=== PATIENT | male | born 1950 | race Asian ===

== ENCOUNTER 2017-05-14 08:51 | Day surgery (SDC) | payer OTHER ==
[2017-05-13 14:16] VITALS: Ht 160 cm; Wt 73.0 kg
[~2017-05-14] VITALS: Ht 160 cm; Wt 73.0 kg
[2017-05-14] VITALS (9 sets, daily range): BP systolic 99–146; BP diastolic 67–85; PULSE 61–75; RESP 12–23
[~2017-05-14 08:51] MED LIST: AMLO-251 PO; LOSA100T7 PO
[2017-05-14] MEDS ORDERED: SOD CHLORIDE 0.9% 1,000 ML IV SCH (09:00)
[2017-05-14] MEDS ORDERED: AMLO5TAB4 PO (09:42)
[2017-05-14 09:54] LABS: BASOPHIL # 0.1 10^3/ul (0.0-0.1); BASOPHILS % 1.2 % (0.0-2.0); EOSINOPHILS # 0.2 10^3/ul (0.0-0.5); EOSINOPHILS % 4.4 % (0.0-7.0); HEMATOCRIT 43.6 % (42.0-52.0); HEMOGLOBIN 14.5 g/dl (14.0-18.0); LYMPHOCYTES # 1.3 10^3/ul (0.8-2.9); LYMPHOCYTES % 30.6 % (15.0-51.0); MEAN CORPUSCULAR HEMOGLOBIN 30.2 pg (29.0-33.0); MEAN CORPUSCULAR HGB CONC 33.3 g/dl (32.0-37.0); MEAN CORPUSCULAR VOLUME 90.8 fl (82.0-101.0); MEAN PLATELET VOLUME 8.9 fl (7.4-10.4); MONOCYTE # 0.3 10^3/ul (0.3-0.9); MONOCYTES % 8.1 % (0.0-11.0); NEUTROPHILS % 55.2 % (39.0-77.0); PLATELET COUNT 185 10^3/UL (140-415); RED CELL DISTRIBUTION WIDTH 13.3 % (11.5-14.5)
[2017-05-14 09:56] LABS: HOLD TRANSMISSIONS 1
[2017-05-14 09:59] LABS: WHITE BLOOD COUNT 4.1 10^3/ul (4.8-10.8)
[2017-05-14] MEDS ORDERED: FENTAnyl 50 MCG/ML VIAL ONE (10:03)
[2017-05-14] MEDS ORDERED: LIDOCAINE 2% (SDV) 5 ML INJ ONE (10:03)
[2017-05-14] MEDS ORDERED: PROPOFOL 20 ML ONE (10:03)
[2017-05-14] MEDS ORDERED: MIDAZOLAM 1 MG/ML 2 ML INJ ONE (10:03)
[2017-05-14 10:10] LABS: INR 0.91; PROTIME 12.3 Sec (12.2-14.2)
[2017-05-14 10:11] LABS: PARTIAL THROMBOPLASTIN TIME 27.3 Sec (25.0-35.0)
[2017-05-14 10:15] LABS: ALBUMIN 4.8 g/dl (3.3-4.9); ALBUMIN/GLOBULIN RATIO 1.37; BILIRUBIN,INDIRECT 1.1 mg/dl (0-1.1); BILIRUBIN,TOTAL 1.1 mg/dl (0.2-1.3); CALCIUM 9.6 mg/dl (8.4-10.2); CREATININE 1.05 mg/dl (0.61-1.24); POTASSIUM 4.1 mmol/L (3.5-5.1); TOTAL PROTEIN 8.3 g/dl (6.1-8.1)
--- NOTE | 2017-05-14 10:20 | RADRPT ---
PROCEDURE: XR Chest. CLINICAL INDICATION: Preoperative, gluteal mass TECHNIQUE: Single frontal view of the chest was obtained. COMPARISON: None FINDINGS: The heart is within normal limits. The thoracic aorta is calcified. The lungs are clear. There is no pleural effusion or pneumothorax. RPTAT: AA IMPRESSION: No acute disease. Calcified aorta consistent with atherosclerotic disease. .Pasquale Almendarez MD, MD Date Time Electronically viewed and signed by .Pasquale Almendarez MD, on 05/14/2017 10:20 .S/
[2017-05-14] MEDS ORDERED: PROCHLORPERAZINE 10 MG INJ IV PRN (10:30)
[2017-05-14] MEDS ORDERED: OXYCODONE/ACETAMINOPHEN (5/325) TAB PO PRN ×2 (10:30)
[2017-05-14] MEDS ORDERED: EPHEDrine SULFATE 50 MG/5 ML SYG IV PRN (10:30)
[2017-05-14] MEDS ORDERED: MEPERIDINE 25 MG INJ IV PRN (10:30)
[2017-05-14] MEDS ORDERED: LABETALOL HCL 20MG INJ IV PRN (10:30)
[2017-05-14] MEDS ORDERED: HYDROmorphONE (0.2 MG/ML) 10ML SYG IV PRN ×2 (10:30)
[2017-05-14] MEDS ORDERED: FENTAnyl 50 MCG/ML VIAL IV PRN (10:30)
[2017-05-14] MEDS ORDERED: ONDANSETRON 4 MG INJ IV PRN (10:30)
[2017-05-14] MEDS ORDERED: hydrALAzine 20 MG INJ IV PRN (10:30)
[2017-05-14] MEDS ORDERED: DIPHENHYDRAMINE 50 MG INJ IV PRN (10:30)
[2017-05-14] MEDS ORDERED: BUPIVACAINE 0.25% (MPF) 30 ML INJ ONE (10:56)
[2017-05-14] MEDS ORDERED: CEFAZOLIN 1 GM INJ ONE (11:03)
[2017-05-14] MEDS ORDERED: METOCLOPRAMIDE 10 MG INJ ONE (11:04)
[2017-05-14] MEDS ORDERED: ONDANSETRON 4 MG INJ ONE (11:04)
[2017-05-14] MEDS ORDERED: LIDOCAINE 2% (MDV) 20 ML INJ ONE (11:19)
[2017-05-14] MEDS ORDERED: BUPIVACAINE 0.5% (SDV) 30 ML INJ ONE (11:19)
--- NOTE | 2017-05-14 11:39 | OPR ---
Date/Time of Note Date/Time of Note DATE: 05/14/17 TIME: 11:36 Operative Report Procedure Date: May 14, 2017 Preoperative Diagnosis left gluteal mass Postoperative Diagnosis same Operation Performed 1. excision of left gluteal mass 4 x 2 cm mass and 4 cm incision 2. localized adjacent tissue transfer with the use of skin flaps 8 sq cm defect 3. therapeutic injection of subcutaneous marcaine cpt code [id number] Surgeon: Jackelin ELDRIDGE Anesthesia Type: MAC Estimated Blood Loss: minimal Specimens left glutea mass Grafts/Implants: none Complications: no Indications This is a 66-year-old male with a left gluteal mass. He requires surgical excision. Risks alternatives benefits and percent were discussed the patient. Patient expresses understanding and consents to the operation. Procedure Description Patient is taken to the OR and prepped and draped in usual sterile fashion. Surgical timeout is performed. IV antibiotics are given. Elliptical incision is made with a 15 blade over the left gluteal mass after local anesthesia was therapeutically injected all around the mass. Dissection cautery was carried on circumference around the mass including the skin. Mass was resected. There is good hemostasis. Due to the tissue defect localized adjacent tissue transfer with these of skin flaps were performed. Multilayer closure with interrupted 3-0 Vicryl and skin chris. Dry dressings were applied. Jackelin ELDRIDGE May 14, 2017 11:39
[2017-05-14] MEDS ORDERED: HYDROCODONE/APAP (5/325) TAB PO ONE (12:00)
--- NOTE | 2017-05-14 13:53 | RADRPT ---
Vent Rate: 62 bpm RR Interval: 0 msec NH Interval: 218 msec QRS Duration: 118 msec QT Interval: 418 msec QTC Interval: 424 msec P-R-T [place]: 40 - -42 - 35 degrees Sinus rhythm with 1st degree AV block Left axis deviation Left ventricular hypertrophy with QRS widening Abnormal ECG Electronically Signed By: Rizwan Nelson [id number]
== END 2017-05-14 13:15 | disposition home or self-care (01) ==
LOC: SDS 08:51
PROVIDERS: ATTEND Surgery
DX: L72.0 Epidermal cyst (principal); I12.9 Hypertensive chronic kidney disease with stage 1 through stage 4 chronic kidney disease, or unspecified chronic kidney disease; N18.9 Chronic kidney disease, unspecified
CPT/HCPCS: 14000; 71010; 80053; 85025; 85610; 85730; 88307; 93005; J0690; J2250; J2405; J2765; J3010